=== PATIENT | female | born 1995 | race Hispanic/Latino ===

== ENCOUNTER 2017-02-22 22:15 | Emergency (ER) | payer OTHER ==
[~2017-02-22 22:15] MED LIST: AMOX-426 PO; NAPR220C15 PO
[2017-02-22 22:38] LABS: BASOPHILS % (AUTO) 0.4 % (0.0-5.0); EOSINOPHILS % (AUTO) 2.6 % (0.0-8.0); HEMATOCRIT 37.9 % (36-48); LYMPHOCYTES % (AUTO) 18.7 % (21.0-51.0); MEAN CORPUSCULAR HEMOGLOBIN 29.4 pg (27.0-33.0); MEAN CORPUSCULAR HGB CONC 34.5 g/dL (32.0-36.0); MEAN CORPUSCULAR VOLUME 85.1 fL (79-99); NEUTROPHILS % (AUTO) 71.3 % (40.0-77.0); PLATELET COUNT (AUTO) 246 K/uL (130-400); RED BLOOD CELL COUNT(AUTO) 4.45 MIL/uL (4.00-5.50); RED CELL DISTRIBUTION WIDTH 13.5 % (11.0-15.5); WHITE BLOOD COUNT (AUTO) 12.9 K/uL (4.8-10.8)
[2017-02-22 22:48] LABS: CREATININE 0.7 mg/dL (0.5-1.5); POTASSIUM 3.5 mmol/L (3.5-5.1)
[2017-02-22 22:52] LABS: ALBUMIN 3.8 g/dL (3.5-5.0); BILIRUBIN,TOTAL 0.2 mg/dL (0.2-1.0); TOTAL PROTEIN, SERUM 7.7 g/dL (6.0-8.3)
[2017-02-22 23:38] LABS: APPEARANCE,URINE Clear (CLEAR); BILIRUBIN,URINE Negative (NEGATIVE); COLOR,URINE Yellow (YELLOW); GLUCOSE, URINE (UA) Negative (NEGATIVE); KETONES,URINE Negative (NEGATIVE); LEUKOCYTE ESTERASE ,URINE Moderate (NEGATIVE); NITRATE,URINE Negative (NEGATIVE); OCCULT BLOOD,URINE Negative (NEGATIVE); PH,URINE 5.5 (5.0-8.0); PROTEIN,URINE Negative (NEGATIVE); UROBILINOGEN,URINE 0.2 mg/dL (0.2-1.0)
[2017-02-22 23:59] LABS: BACTERIA,URINE Few /HPF (None Seen); MUCUS,URINE Few LPF (None Seen); RBC,URINE 0-1 /HPF (0-1); SQUAMOUS EPITHELIAL CELL,UR Few /LPF (0-2)
== END 2017-02-23 | disposition home or self-care (01) ==
LOC: EDH 22:15
DX: O20.0 Threatened abortion (principal); O23.41 Unspecified infection of urinary tract in pregnancy, first trimester; Z3A.14 14 weeks gestation of pregnancy
CPT/HCPCS: 36415; 76801; 80053; 81001; 83690; 84702; 85025

== ENCOUNTER 2017-07-13 20:17 | Observation (INO) | payer MEDICAID, OTHER ==
[~2017-07-13] VITALS: Ht 157.5 cm; Wt 109.3 kg
[2017-07-13] MEDS ORDERED: LACTATED RINGERS 1000ML 1,000 ML IV SCH (20:30)
[2017-07-13 20:51] LABS: APPEARANCE,URINE Cloudy (CLEAR); BILIRUBIN,URINE Negative (NEGATIVE); COLOR,URINE Yellow (YELLOW); GLUCOSE, URINE (UA) Negative (NEGATIVE); KETONES,URINE 40 mg/dL (NEGATIVE); LEUKOCYTE ESTERASE ,URINE Moderate (NEGATIVE); NITRATE,URINE Negative (NEGATIVE); OCCULT BLOOD,URINE Negative (NEGATIVE); PROTEIN,URINE Negative (NEGATIVE)
[2017-07-13 21:09] LABS: BACTERIA,URINE Few /HPF (None Seen); RBC,URINE None Seen /HPF (0-1)
[2017-07-13] MEDS ORDERED: LACTATED RINGERS 1000ML IV SCH (21:15)
[2017-07-13] MEDS ORDERED: TERBUTALINE SULFATE VIAL 1MG/ML SQ SCH (21:15)
[2017-07-13] MEDS ORDERED: TERBUTALINE SULFATE VIAL 1MG/ML SQ ONE (21:19)
== END 2017-07-14 00:25 | disposition home or self-care (01) ==
LOC: EDH 20:17 → LDH 20:18
PROVIDERS: ADMIT Specialist; ATTEND Specialist
DX: O26.892 Other specified pregnancy related conditions, second trimester (principal); R10.30 Lower abdominal pain, unspecified; Z3A.26 26 weeks gestation of pregnancy
CPT/HCPCS: 59025; 81001; 96360; 96372; 99285; G0378 ×4; J3105; J7120; 96361

== ENCOUNTER 2021-07-19 11:54 | Emergency (ER) | payer MEDICAID ==
[~2021-07-19] VITALS: Ht 160 cm; Wt 108.9 kg
[2021-07-19 11:58] VITALS: BP 102/72
[2021-07-19] MEDS: ACETAMINOPHEN 500 MG TABLET PO ONE (14:26)
[2021-07-19] MEDS: IPRATROPIUM/ALBUTEROL SULFATE 3 ML SOLUTION IH ONE (14:43)
== END 2021-07-19 15:12 | disposition left against medical advice (07) ==
LOC: EDH 11:54
DX: J40 Bronchitis, not specified as acute or chronic (principal)
CPT/HCPCS: 71045; 93005; 94640

== ENCOUNTER 2023-06-03 09:37 | Emergency (ER) | payer MEDICAID, OTHER ==
[~2023-06-03] VITALS: Ht 160 cm; Wt 118.4 kg
[2023-06-03 10:33] LABS: BASOPHILS # (AUTO) 0.02 K/uL (0.00-0.20); BASOPHILS % (AUTO) 0.2 % (0.0-5.0); EOSINOPHILS % (AUTO) 1.9 % (0.0-8.0); HEMATOCRIT 41.5 % (36-48); IMMATURE GRANULOCYTE ABSOLUTE 0.04 K/uL (0-1); LYMPHOCYTES # (AUTO) 1.2 K/uL (1.0-4.8); LYMPHOCYTES % (AUTO) 11.7 % (21.0-51.0); MEAN CORPUSCULAR HEMOGLOBIN 27.9 pg (27.0-33.0); MEAN CORPUSCULAR VOLUME 84.5 fL (79-99); MONOCYTES # (AUTO) 0.7 K/uL (0.1-1.0); MONOCYTES % (AUTO) 6.3 % (3.0-13.0); NEUTROPHILS # (AUTO) 8.3 K/uL (1.8-7.7); NEUTROPHILS % (AUTO) 79.5 % (40.0-77.0); PLATELET COUNT (AUTO) 242 K/uL (130-400); RED BLOOD CELL COUNT(AUTO) 4.91 MIL/uL (4.00-5.50); WHITE BLOOD COUNT (AUTO) 10.4 K/uL (4.8-10.8)
[2023-06-03 10:41] LABS: CREATININE 0.7 mg/dL (0.5-1.0); POTASSIUM 3.7 mmol/L (3.5-5.1)
[2023-06-03 10:42] LABS: APPEARANCE,URINE CLEAR (CLEAR); BILIRUBIN,URINE NEGATIVE (NEGATIVE); COLOR,URINE LIGHT-YELLOW (YELLOW); GLUCOSE, URINE (UA) NEGATIVE (NEGATIVE); KETONES,URINE 20 mg/dL (NEGATIVE); LEUKOCYTE ESTERASE ,URINE NEGATIVE Leu/uL (NEGATIVE); NITRATE,URINE NEGATIVE (NEGATIVE); OCCULT BLOOD,URINE NEGATIVE (NEGATIVE); PROTEIN,URINE NEGATIVE (NEGATIVE); UROBILINOGEN,URINE 0.2 mg/dL (0.2-1.0)
[2023-06-03 10:45] LABS: HCG,QUALITATIVE URINE NEGATIVE (NEGATIVE)
[2023-06-03 10:46] LABS: ALBUMIN 3.5 g/dL (3.5-5.0); BILIRUBIN,TOTAL 0.5 mg/dL (0.2-1.0)
[2023-06-03 10:46] LABS: ADD UA MICROSCOPIC YES
[2023-06-03 10:47] LABS: MUCUS,URINE RARE LPF (None Seen); SQUAMOUS EPITHELIAL CELL,UR MOD /HPF (0-2)
[2023-06-03] MEDS: CEFAZOLIN SODIUM 1 GM VIAL IVPB SCH (11:16)
[2023-06-03] MEDS: KETOROLAC 30MG VIAL (30MG/ML) IVP ONE (11:16)
[2023-06-03] MEDS: DEXAMETHASONE SOD PHOSPHATE 4 MG/ML 1ML VIAL IVP ONE (11:16)
[2023-06-03] MEDS: LIDOCAINE HCL 2% VISCOUS 15 ML UDCUP PO ONE (11:17)
[2023-06-03] MEDS: 0.9%NACL 1000ML 1,572 ML IV ONE (11:17)
[2023-06-03] MEDS ORDERED: IOHEXOL-350 75 ML VIAL IV ONE (12:12)
[2023-06-03] MEDS: CLINDAMYCIN IVPB 900MG/50ML 50 ML IV SCH (22:11)
[2023-06-03] MEDS ORDERED: ACET-2079 PO ×2 (22:43→22:58)
[2023-06-03 22:55] VITALS: BP 106/56; PULSE 89; RESP 14; O2SAT 97
[2023-06-03] MEDS ORDERED: CLIN-26 PO (23:01)
== END 2023-06-03 23:21 | disposition home or self-care (01) ==
LOC: EDH 09:37
DX: J36 Peritonsillar abscess (principal); Z79.899 Other long term (current) drug therapy; Z98.890 Other specified postprocedural states
CPT/HCPCS: 99285; 96365; 70491; 96375; 96367; 96366; 80053; 85025; 87040 ×2; 87880; 83605; 81001; 81025; 36415; J1100; J0690 ×2; J1885; J3490; Q9967